=== PATIENT | male | born 1980 | race Two or more races ===

== ENCOUNTER 2019-12-26 03:18 | Emergency (ER) | payer OTHER ==
[~2019-12-26] VITALS: Ht 193 cm; Wt 108.9 kg
[2019-12-26] MEDS ORDERED: SODIUM CHLORIDE 0.9% 1,000 ML IV ONE (06:56)
[2019-12-26] MEDS ORDERED: TETANUS-DIPTH-ACEL PERTUSSIS 0.5ML SYRG IM ONE (07:00)
[2019-12-26] MEDS ORDERED: cefTRIAXone 1GM/50ML D5W 50 ML IV ONE (07:00)
[2019-12-26] MEDS ORDERED: PROMETHAZINE HCL 25 MG/ML 1ML IV ONE ×3 (07:30→13:45)
[2019-12-26] MEDS ORDERED: HYDROmorphone HCL 2 MG/ML VL IV ONE ×3 (07:30→13:45)
[2019-12-26 09:53] LABS: Basophils # (auto) 0 uL; Basophils % (auto) 0.4 % (0.0-2.0); Eosinophils # (auto) 0.1 uL; Eosinophils % (auto) 0.6 % (0.0-7.0); Hematocrit 42.7 % (41.0-53.0); Hemoglobin 14.4 g/dL (13.5-17.5); Lymphocytes # (auto) 0.9 uL; Lymphocytes % (auto) 8.9 % (10.0-50.0); Mean Corpuscular Hemoglobin 30.7 pg (28.0-32.0); Mean Corpuscular Hgb Conc. 33.6 g/dL (32.0-36.0); Mean Corpuscular Volume 91.3 fL (80.0-100.0); Monocytes # (auto) 0.8 uL; Monocytes % (auto) 8.2 % (0.0-12.0); Neutrophils # (auto) 7.9 uL; Neutrophils % (auto) 81.9 % (37.0-80.0); Nucleated Red Blood Cells % 0.3 %; Platelet Count (auto) 262 10^3/uL (140-450); Red Blood Cells 4.68 10^6/uL (4.5-5.90); Red Cell Distribution Width 12.8 % (11.8-14.3); White Blood Cell 9.6 10^3/uL (4.4-10.8)
[2019-12-26 09:57] LABS: Urine Bacteria NONE SEEN /hpf (None Seen); Urine Blood Negative /uL (Negative); Urine Specific Gravity 1.023 (1.001-1.035); Urine WBC <1 /hpf (0 - 3)
[2019-12-26 10:11] LABS: Albumin 3.6 g/dL (3.4-5.0); Calcium 8.9 mg/dL (8.5-10.1); Magnesium 2.1 mg/dL (1.6-2.6); Potassium 3.9 mmol/L (3.5-5.1)
[2019-12-26 10:15] LABS: BUN/Creatinine Ratio 10.9; Bilirubin, Total 0.5 mg/dL (0.2-1.0); Total Protein 7.3 g/dL (6.4-8.2)
[2019-12-26 12:18] LABS: INR 0.98 (0.9-1.15); Partial Thromboplastin Time 26.6 sec (23.64-32.05)
[2019-12-26 13:24] VITALS: BP 153/83
[2019-12-26] MEDS ORDERED: PROMETHAZINE HCL 25 MG/ML 1ML ONE (13:35)
== END 2019-12-26 13:43 | disposition short-term general hospital (02) ==
LOC: ER 03:18 → EDBD 03:18 → ER 13:43
DX: S82.101B Unspecified fracture of upper end of right tibia, initial encounter for open fracture type I or II (principal); S82.451B Displaced comminuted fracture of shaft of right fibula, initial encounter for open fracture type I or II; S40.011A Contusion of right shoulder, initial encounter; Z91.013 Allergy to seafood; V09.20XA Pedestrian injured in traffic accident involving unspecified motor vehicles, initial encounter; Y93.02 Activity, running; Y92.488 Other paved roadways as the place of occurrence of the external cause; Y99.8 Other external cause status
CPT/HCPCS: 29515; 36415; 71045; 73000; 73502; 73590; 80053; 81001; 83735; 85025; 85610; 85730; 90471; 90715; 93005; 96365; 96375; 96376; 99285; J0696; J1170; J2550; J7030